=== PATIENT | male | born 1935 | race Caucasian/White ===

== ENCOUNTER 2018-07-06 18:32 | Emergency (ER) | payer MEDICARE ==
[2018-07-06] MEDS ORDERED: ONDANSETRON HCL IV 4 MG/2 ML VIAL IVP ONE (18:35)
[2018-07-06] MEDS ORDERED: ASPIRIN 81 MG CHEWABLE TABLET PO ONE (18:35)
--- NOTE | 2018-07-06 18:49 | Emergency Department Record ---
History of Present Illness - General Chief Complaint: Dizziness Stated Complaint: LIGHT HEADED/NAUSEA/CHEST DISCOMFORT Time Seen by Provider: 07/06/18 18:33 Source: Patient Mode of Arrival: Wheelchair Limitations: No limitations - History of Present Illness Initial Comments: 83 yo male presents to ED for evaluation of nausea and chest discomfort symtpoms that began this evening. Patient reports taking "more tums" than usual tonight, denies fevers, chills, or cough symptoms. Patient reports a previous history of HTN, previous CABG. Patient denies recent stress testing, reports that he sees Dr. Harris through [facility]. Onset/Timin -: Hour(s) Timing: Sudden onset Description: Lightheadedness History of Same: Yes History of Trauma: No Severity: Moderate Improves With: Nothing Worsens With: Nothing - [place] Coma Scale Eye Response: (4) Open spontaneously Motor Response: (6) Obeys commands Verbal Response: (5) Oriented Pieter Total: 15 - Related Data Home Medications Medication Instructions Recorded Confirmed Last Taken Aspirin 81 mg PO BID 07/06/18 07/06/18 1 Day Ago ~07/05/18 Calcium Carbonate [Calcium] 500 mg PO DAILY 07/06/18 07/06/18 1 Day Ago ~07/05/18 Multivitamin [Multi-Vitamin Daily] 1 each PO DAILY 07/06/18 07/06/18 1 Day Ago ~07/05/18 [place]-3 Fatty Acids/Fish Oil [Fish 2 each PO DAILY 07/06/18 07/06/18 1 Day Ago Oil 1,000 mg Capsule] ~07/05/18 Allergies Allergy/AdvReac Type Severity Reaction Status Date / Time Sulfa (Sulfonamide Allergy PT UNSURE Verified 07/06/18 18:42 Antibiotics) OF REACTION Travel Screening - Travel/Exposure Within Last 30 Days Have you traveled within the last 30 days?: No - Travel/Exposure Within Last Year Have you traveled outside the [place] in the last year?: No - Additonal Travel Details Have you been exposed to anyone with a communicable illness?: No - Travel Symptoms Symptom Screening: None Review of Systems Constitutional: Denies: Chills, Fever, Malaise, Night sweats Eyes: Denies: Eye discharge, Eye pain ENT: Denies: Congestion, Ear pain, Epistaxis Respiratory: Denies: Cough, Dyspnea Cardiovascular: Reports: Chest pain. Denies: Dyspnea on exertion Endocrine: Denies: Fatigue, Heat or cold intolerance Gastrointestinal: Reports: Nausea. Denies: Abdominal pain, Vomiting Genitourinary: Denies: Incontinence, Retention Musculoskeletal: Denies: Arthralgia, Back pain Skin: Denies: Bruising, Change in color Neurological: Denies: Abnormal gait, Confusion, Headache, Seizure Psychiatric: Denies: Anxiety Hematological/Lymphatic: Denies: Anemia, Blood Clots Past Medical History - SOCIAL HISTORY Smoking Status: Former smoker Alcohol Use: None Drug Use: None - RESPIRATORY Hx Respiratory Disorders: Yes Hx Bronchitis: Yes Hx Pneumonia: Yes - CARDIOVASCULAR Hx Cardio Disorders: Yes Hx Abnormal EKG: Yes Hx Coronary Artery Disease: Yes Hx Coronary Artery Bypass Graft: Yes (2006) - NEURO Hx Neuro Disorders: No - GI Hx GI Disorders: Yes Hx of Polyps: Yes - Hx Genitourinary Disorders: No - ENDOCRINE Hx Endocrine Disorders: No - MUSCULOSKELETAL Hx Musculoskeletal Disorders: No - PSYCH Hx Psych Problems: No - HEMATOLOGY/ONCOLOGY Hx Hematology/Oncology Disorders: Yes Hx Blood Transfusions: Yes (? with bypass) Family Medical History Any Significant Family History?: Yes Hx Cancer: Brother/Sister Hx Diabetes: Mother Hx Heart Disease: Mother Physical Exam - General General Appearance: Alert, Oriented x3, Cooperative, Mild distress Limitations: No limitations - Head Head exam: Atraumatic, Normocephalic, Normal inspection Head exam detail: negative: Abrasion, Contusion, Ellsworth's sign, General tenderness, Hematoma, Laceration - Eye Eye exam: Normal appearance. negative: Conjunctival injection, Periorbital swelling, Periorbital tenderness, Scleral icterus - ENT Ear exam: negative: Auricular hematoma, Auricular trauma Nasal Exam: negative: Active bleeding, Discharge, Dried blood, Foreign body Mouth exam: negative: Drooling, Laceration, Tongue elevation - Neck Neck exam: Normal inspection. negative: Meningismus, Tenderness - Respiratory Respiratory exam: Normal lung sounds bilaterally. negative: Rales, Respiratory distress, Rhonchi, Stridor - Cardiovascular Cardiovascular Exam: Regular rate, Normal rhythm, Normal heart sounds - GI/Abdominal GI/Abdominal exam: Soft. negative: Rebound, Rigid, Tenderness - Rectal Rectal exam: Deferred - exam: Deferred - Extremities Extremities exam: Pedal edema. negative: Tenderness - Back Back exam: Denies: CVA tenderness (R), CVA tenderness (L) - Neurological Neurological exam: Alert, Normal gait, Oriented X3 - Psychiatric Psychiatric exam: Normal affect, Normal mood - Skin Skin exam: Normal color. negative: Abrasion Type of lesion: negative: abrasion Course Vital Signs 07/06/18 18:33 Temperature 98.2 F Pulse Rate 73 Respiratory 20 Rate Blood Pressure 171/106 Pulse Ox 96 - Reevaluation(s) Reevaluation #1: 07/06/18 18:45 EKG: NSR with PVCs Normal axis, normal intervals Q waves III, AVF Reevaluation #2: 07/06/18 19:27 Laboratory studies were reviewed and are grossly unremarkable for an acute process. CXR: No acute process Will initiate transfer to [facility] for further evaluation. Reevaluation #3: 07/06/18 19:50 Case was discussed with Dr. Harris, will accept the patient for transfer at this time. Would like Heparin initiated as well. Heparin 12/mg/kg ordered to infuse. Patient was updated on all results as well as the plan to initiate transfer at this time. Medical Decision Making - Lab Data Result diagrams: 07/06/18 18:45 07/06/18 18:45 Disposition Disposition: Transfer Clinical Impression: Chest pain Qualifiers: Chest pain type: unspecified Qualified Code(s): R07.9 - Chest pain, unspecified CAD (coronary artery disease) Qualifiers: Coronary Disease-Associated Artery/Lesion type: bypass graft [place] vs. transplanted heart: [place] heart Associated angina: with unspecified angina Qualified Code(s): I25.709 - Atherosclerosis of coronary artery bypass graft(s) , unspecified, with unspecified angina pectoris Hypertension Qualifiers: Hypertension type: unspecified Qualified Code(s): I10 - Essential (primary) hypertension Disposition: Acute Care Hospital Transfer Transfer To: [facility] Reason For Transfer: Cardiac evaluation Accepting Physician: Steven Time Discussed w/Accepting Physician: 19:52 Condition: (2) Stable Forms: Patient Portal Access Time of Disposition: 19:52 Quality - Quality Measures Quality Measures: N/A - Blood Pressure Screening Does Patient Have Any of the Following: Active Dx of HTN Blood Pressure Classification: Hypertensive Reading Systolic Measurement: 171 Diastolic Measurement: 106 Screening for High Blood Pressure: Patient Exclusion, Hx of HTN [[id number]]
[2018-07-06 18:54] LABS: HEMATOCRIT 44.8 % (42.0-52.0); HEMOGLOBIN 15.3 gm/dl (14.0-18.0); MEAN CELL VOLUME 90.7 fl (81-97); MEAN CORPUSCULAR HGB CONC 34.2 g/dl (32-36); MEAN PLATELET VOLUME 10.7 fl (7.4-10.4); PLATELET COUNT 162 K/uL (130-400); RED BLOOD COUNT 4.94 M/uL (4.40-5.70); RED CELL DISTRIBUTION WIDTH 12.9 % (11.5-14.5); WHITE BLOOD COUNT W/O DIFF 7.5 K/uL (4.2-12.2)
[2018-07-06 19:09] LABS: BLOOD UREA NITROGEN 11 mg/dL (8-23); CREATININE 0.8 mg/dL (0.7-1.2); EST GLOMERULAR FILTRATION RATE > 60 mL/min
[2018-07-06 19:10] LABS: TOTAL PROTEIN 8.1 g/dL (6.6-8.7)
[2018-07-06 19:11] LABS: GLUCOSE,RANDOM 116 mg/dL (74-109)
[2018-07-06 19:14] LABS: ALB/GLOB RATIO 1.2 (1.1-1.8); ALBUMIN 4.4 g/dL (4.0-5.0); ALKALINE PHOSPHATASE 65 U/L (40-129); ALT/SGPT 21 U/L (<41); AST/SGOT 19 U/L (10.0-50.0)
[2018-07-06] MEDS ORDERED: HEPARIN SODIUM/D5W 25,000 UNITS/500 ML BAG IV SCH (20:00)
[2018-07-06] MEDS ORDERED: NITROGLYCERIN 0.4MG SL TABLET #25 BTL SL ONE ×2 (20:03)
[2018-07-06] MEDS ORDERED: IBUPROFEN 600 MG TABLET PO ONE (20:08)
--- NOTE | 2018-07-10 04:58 | RADIOLOGY REPORT ---
DATE: 07/06/2018. EXAM: CHEST, TWO VIEWS. HISTORY: Dry cough and left-sided chest pain. TECHNIQUE: PA and lateral views. COMPARISON: 07/05/2015. FINDINGS: The cardiac silhouette is normal in size status post coronary artery bypass graft. Atherosclerotic calcification in the ureter. The pulmonary vasculature is not congested. No focal consolidation, pleural effusion, or pneumothorax is seen. IMPRESSION: NO ACUTE CARDIOPULMONARY PROCESS. JOB NUMBER: [id number] MTDD
== END 2018-07-06 20:48 | disposition short-term general hospital (02) ==
LOC: ER 18:32
DX: R07.89 Other chest pain (principal); R51 Headache; R42 Dizziness and giddiness; R11.0 Nausea; I25.709 Atherosclerosis of coronary artery bypass graft(s), unspecified, with unspecified angina pectoris; I10 Essential (primary) hypertension; Z87.891 Personal history of nicotine dependence
CPT/HCPCS: 71046; 80053; 84484; 85027; 93005; 93010; 96365; 99285